=== PATIENT | female | born 1935 | race Two or more races ===

== ENCOUNTER 2017-11-22 07:50 | Outpatient (CLI) | payer OTHER | END 2017-11-22 08:44 | disposition home or self-care (01) | LOC: SONOGRAMA 07:50 | DX: E04.1 Nontoxic single thyroid nodule (principal) ==

== ENCOUNTER 2018-01-05 10:21 | Outpatient (CLI) | payer OTHER | END 2018-01-05 11:13 | disposition home or self-care (01) | LOC: SONOGRAMA 10:21 | DX: N95.0 Postmenopausal bleeding (principal) ==

== ENCOUNTER 2018-03-19 07:57 | Inpatient (IN) | payer OTHER ==
[~2018-03-19] VITALS: Ht 172.7 cm; Wt 76.2 kg
[2018-03-19] MEDS ORDERED: APRESOLINE 10MG10 MG PO (09:43)
[2018-03-19] MEDS ORDERED: TOPROL XL200 MG PO (09:44)
[2018-03-19] MEDS ORDERED: HYZAAR 50-12.51 EACH PO (09:44)
[2018-03-19] MEDS ORDERED: ZESTRIL40 M1 PO (09:44)
[2018-03-19] MEDS ORDERED: LISINOPRIL5 MG PO (09:45)
[2018-03-19] MEDS ORDERED: CARDURA1 MG PO (09:45)
[2018-03-19] MEDS ORDERED: ZOCOR20 MG PO (09:45)
== END 2018-03-24 13:19 | DRG 741 ==
LOC: EDSTATUS 08:15 → ADM 08:15 → OB/GYN 03-21 05:40 → O/R 03-21 05:40 → SURH 03-21 07:00 → OB/GYN 03-21 10:50
PROVIDERS: Obstetrics & Gynecology Gynecologic Oncology
PROC: 0UT70ZZ Resection of Bilateral Fallopian Tubes, Open Approach (ICD-10-PCS; 2018-03-21)
PROC: 0UT20ZZ Resection of Bilateral Ovaries, Open Approach (ICD-10-PCS; 2018-03-21)
PROC: 07BC0ZX Excision of Pelvis Lymphatic, Open Approach, Diagnostic (ICD-10-PCS; 2018-03-21)
PROC: 0UT90ZZ Resection of Uterus, Open Approach (ICD-10-PCS; principal; 2018-03-21 07:00)
DX: C54.1 Malignant neoplasm of endometrium (principal); I11.9 Hypertensive heart disease without heart failure

== ENCOUNTER → 2019-04-02 | Outpatient (CLI) | payer OTHER ==
[~2019-04-02] MED LIST: APRESOLINE 10MG10 MG PO; CARDURA1 MG PO; HYZAAR 50-12.51 EACH PO; LISINOPRIL5 MG PO; TOPROL XL200 MG PO; ZESTRIL40 M1 PO; ZOCOR20 MG PO
== END | disposition home or self-care (01) ==
LOC: NUCLEAR 08:02
DX: C54.1 Malignant neoplasm of endometrium (principal); K83.8 Other specified diseases of biliary tract
CPT/HCPCS: 73522; 73551; 78816; A9552

== ENCOUNTER → 2019-04-10 | Outpatient (CLI) | payer OTHER | END | disposition home or self-care (01) | LOC: MRI 08:28 | DX: C54.1 Malignant neoplasm of endometrium (principal); M25.512 Pain in left shoulder; M12.812 Other specific arthropathies, not elsewhere classified, left shoulder | CPT/HCPCS: 73221 ==

== ENCOUNTER 2019-08-18 07:39 | Outpatient (CLI) | payer OTHER | END 2019-08-18 17:00 | disposition home or self-care (01) | LOC: MRI 07:39 | DX: C54.1 Malignant neoplasm of endometrium (principal); D64.89 Other specified anemias | CPT/HCPCS: 72195; 72196; 74181; 74182 ==

== ENCOUNTER → 2019-08-22 | Outpatient (CLI) | payer OTHER | END | disposition home or self-care (01) | LOC: NUCLEAR 07:00 | DX: I20.8 Other forms of angina pectoris (principal); I50.32 Chronic diastolic (congestive) heart failure | CPT/HCPCS: 78452; 93017; A9500; J0153 ==

== ENCOUNTER 2019-09-19 07:24 | Outpatient (CLI) | payer OTHER | END 2019-09-19 07:26 | disposition home or self-care (01) | LOC: TOM 07:24 | DX: K56.50 Intestinal adhesions [bands], unspecified as to partial versus complete obstruction (principal); K56.609 Unspecified intestinal obstruction, unspecified as to partial versus complete obstruction; K56.690 Other partial intestinal obstruction; K56.600 Partial intestinal obstruction, unspecified as to cause ==

== ENCOUNTER 2020-01-08 07:11 | Outpatient (CLI) | payer OTHER | END 2020-01-08 08:00 | disposition home or self-care (01) | LOC: MRI 07:11 | DX: C64.1 Malignant neoplasm of right kidney, except renal pelvis (principal) | CPT/HCPCS: 71046; 72197; 74183; A9575; 72196; 74182 ==

== ENCOUNTER 2020-02-17 11:45 | Inpatient (IN) | payer OTHER ==
[~2020-02-17] VITALS: Ht 172.7 cm; Wt 72.6 kg
[2020-02-17] MEDS ORDERED: HORIZANT300 MG (11:56)
[2020-02-17] MEDS ORDERED: CHLORTHALIDONE25 MG (11:57)
[2020-02-17] MEDS ORDERED: HYDRALAZINE HC100 MG (11:57)
[2020-02-17] MEDS ORDERED: COZAAR100 MG (11:58)
[2020-02-23] MEDS ORDERED: CLOPIDOGREL BIS75 MG PO (10:48)
[2020-02-23] MEDS ORDERED: LOSARTAN-HCTZ1 EAC2 PO (10:48)
[2020-02-23] MEDS ORDERED: LIPITOR40 MG PO (10:48)
[2020-02-23] MEDS ORDERED: HYDRALAZINE HCL25 MG PO (10:49)
[2020-02-23] MEDS ORDERED: NIFEDIPINE ER30 MG PO (10:49)
[2020-02-23] MEDS ORDERED: HYDROCHLOROTHIA25 MG PO (12:02)
[2020-02-23] MEDS ORDERED: LOSARTAN POTAS100 MG PO (12:02)
== END 2020-02-23 12:29 | disposition home or self-care (01) | DRG 69 ==
LOC: ER 11:45 → MEDJ 19:26
PROVIDERS: ADMIT Internal Medicine
PROC: B030ZZZ Magnetic Resonance Imaging (MRI) of Brain (ICD-10-PCS; principal; 2020-02-17)
PROC: B246ZZZ Ultrasonography of Right and Left Heart (ICD-10-PCS; 2020-02-17)
PROC: BW28ZZZ Computerized Tomography (CT Scan) of Head (ICD-10-PCS; 2020-02-17)
PROC: B345ZZZ Ultrasonography of Bilateral Common Carotid Arteries (ICD-10-PCS; 2020-02-17)
PROC: BB24ZZZ Computerized Tomography (CT Scan) of Bilateral Lungs (ICD-10-PCS; 2020-02-18)
PROC: 4A12X4Z Monitoring of Cardiac Electrical Activity, External Approach (ICD-10-PCS; 2020-02-19)
DX: I67.82 Cerebral ischemia (principal); I50.41 Acute combined systolic (congestive) and diastolic (congestive) heart failure; I31.3 Pericardial effusion (noninflammatory); G45.8 Other transient cerebral ischemic attacks and related syndromes; N17.8 Other acute kidney failure; I11.0 Hypertensive heart disease with heart failure; E87.6 Hypokalemia; E03.8 Other specified hypothyroidism; I25.10 Atherosclerotic heart disease of native coronary artery without angina pectoris; Z79.01 Long term (current) use of anticoagulants
CPT/HCPCS: 70551; 70553

== ENCOUNTER 2020-03-30 10:20 | Inpatient (IN) | payer OTHER ==
[~2020-03-30] VITALS: Ht 172.7 cm; Wt 72.6 kg
[~2020-03-30 10:20] MED LIST changes: +CHLORTHALIDONE25 MG; +CLOPIDOGREL BIS75 MG PO; +COZAAR100 MG; +HORIZANT300 MG; +HYDRALAZINE HC100 MG; +HYDRALAZINE HCL25 MG PO; +HYDROCHLOROTHIA25 MG PO; +LIPITOR40 MG PO; +LOSARTAN POTAS100 MG PO; +LOSARTAN-HCTZ1 EAC2 PO; +NIFEDIPINE ER30 MG PO
== END 2020-04-03 12:35 | disposition home or self-care (01) | DRG 690 ==
LOC: ER 10:20 → SURG 15:18
PROVIDERS: ADMIT Internal Medicine
DX: N39.0 Urinary tract infection, site not specified (principal); R31.0 Gross hematuria; E03.8 Other specified hypothyroidism; E87.6 Hypokalemia; I11.9 Hypertensive heart disease without heart failure; I25.10 Atherosclerotic heart disease of native coronary artery without angina pectoris; Z08 Encounter for follow-up examination after completed treatment for malignant neoplasm; Z85.42 Personal history of malignant neoplasm of other parts of uterus

== ENCOUNTER 2020-08-12 07:23 | Outpatient (CLI) | payer OTHER | END 2020-08-12 17:42 | disposition home or self-care (01) | LOC: MRI 07:23 | PROVIDERS: ATTEND Internal Medicine Hematology & Oncology | DX: C54.1 Malignant neoplasm of endometrium (principal) | CPT/HCPCS: 72197; 74183; A9575; 72196; 74182 ==

== ENCOUNTER → 2020-08-13 | Outpatient (CLI) | payer OTHER | END | disposition home or self-care (01) | LOC: NUCLEAR 09:00 | PROVIDERS: ATTEND Internal Medicine Hematology & Oncology | DX: C54.1 Malignant neoplasm of endometrium (principal) | CPT/HCPCS: 78815; A9552 ==

== ENCOUNTER 2021-03-22 13:44 | Outpatient (CLI) | payer OTHER | END 2021-03-22 14:37 | disposition home or self-care (01) | LOC: SONOGRAMA 13:44 | DX: N18.30 Chronic kidney disease, stage 3 unspecified (principal) ==

== ENCOUNTER → 2021-03-22 | Outpatient (CLI) | payer OTHER | END | disposition home or self-care (01) | LOC: MRI 08-12 08:00 → NUCLEAR 11:11 | PROVIDERS: ATTEND Internal Medicine | DX: M85.80 Other specified disorders of bone density and structure, unspecified site (principal); M81.0 Age-related osteoporosis without current pathological fracture ==

== ENCOUNTER 2021-08-09 07:51 | Outpatient (CLI) | payer OTHER | END 2021-08-09 14:56 | disposition home or self-care (01) | LOC: MRI 07:51 | PROVIDERS: ATTEND Internal Medicine Hematology & Oncology | DX: N94.89 Other specified conditions associated with female genital organs and menstrual cycle (principal); C54.1 Malignant neoplasm of endometrium | CPT/HCPCS: 72196; 74182; A9575; 72197; 74183 ==

== ENCOUNTER 2021-08-09 08:00 | Outpatient (CLI) | payer OTHER | END 2021-08-09 08:30 | disposition home or self-care (01) | LOC: PPH VACUNA 08:00 | PROVIDERS: ATTEND Emergency Medicine Pediatric Emergency Medicine | DX: Z23 Encounter for immunization (principal) ==

== ENCOUNTER 2021-08-31 08:31 | Outpatient (CLI) | payer OTHER | END 2021-08-31 08:35 | disposition home or self-care (01) | LOC: NUCLEAR 08:31 | PROVIDERS: ATTEND Internal Medicine Hematology & Oncology | DX: C54.1 Malignant neoplasm of endometrium (principal) | CPT/HCPCS: 78815; A9552 ==

== ENCOUNTER 2021-11-11 10:29 | Outpatient (CLI) | payer OTHER | END 2021-11-11 11:03 | disposition home or self-care (01) | LOC: SONOGRAMA 10:29 | PROVIDERS: ATTEND Internal Medicine Hematology & Oncology | DX: E04.2 Nontoxic multinodular goiter (principal) ==

== ENCOUNTER 2021-11-21 11:45 | Inpatient (IN) | payer OTHER ==
[~2021-11-21] VITALS: Ht 167.6 cm; Wt 74.8 kg
[2021-11-21] MEDS ORDERED: HYDRALAZINE HCL50 MG PO (12:04)
[2021-11-21] MEDS ORDERED: GABAPENTIN100 M2 PO (12:05)
[2021-11-21] MEDS ORDERED: NIFEDIPINE20 MG (12:06)
[2021-11-22] MEDS ORDERED: ALENDRONATE SOD70 MG (11:12)
[2021-11-22] MEDS ORDERED: ATORVASTATIN CA40 MG (11:12)
[2021-11-22] MEDS ORDERED: HYDROCHLOROTHIA25 MG (11:13)
[2021-11-22] MEDS ORDERED: CLOPIDOGREL BIS75 MG (11:13)
[2021-11-22] MEDS ORDERED: TRAMADOL HCL50 MG (11:13)
== END 2021-11-28 20:16 | disposition home or self-care (01) | DRG 811 ==
LOC: ER 11:45 → MEDJ 20:27
PROVIDERS: ADMIT Internal Medicine; ATTEND Internal Medicine
PROC: 8E0ZXY6 Isolation (ICD-10-PCS; 2021-11-21)
PROC: 30233N1 Transfusion of Nonautologous Red Blood Cells into Peripheral Vein, Percutaneous Approach (ICD-10-PCS; principal; 2021-11-22)
PROC: 4A033R1 Measurement of Arterial Saturation, Peripheral, Percutaneous Approach (ICD-10-PCS; 2021-11-22)
PROC: BW25ZZZ Computerized Tomography (CT Scan) of Chest, Abdomen and Pelvis (ICD-10-PCS; 2021-11-22)
PROC: 4A12X4Z Monitoring of Cardiac Electrical Activity, External Approach (ICD-10-PCS; 2021-11-25)
PROC: B24BZZZ Ultrasonography of Heart with Aorta (ICD-10-PCS; 2021-11-25)
DX: D64.9 Anemia, unspecified (principal); U07.1 COVID-19; N17.8 Other acute kidney failure; I10 Essential (primary) hypertension; E87.6 Hypokalemia; E78.49 Other hyperlipidemia; C54.1 Malignant neoplasm of endometrium; K62.89 Other specified diseases of anus and rectum; Z20.822 Contact with and (suspected) exposure to COVID-19

== ENCOUNTER 2022-11-15 07:23 | Outpatient (CLI) | payer OTHER ==
[~2022-11-15 07:23] MED LIST changes: +ALENDRONATE SOD70 MG; +ATORVASTATIN CA40 MG; +CLOPIDOGREL BIS75 MG; +GABAPENTIN100 M2 PO; +HYDRALAZINE HCL50 MG PO; +HYDROCHLOROTHIA25 MG; +NIFEDIPINE20 MG; +TRAMADOL HCL50 MG
== END 2022-11-15 07:25 | disposition home or self-care (01) ==
LOC: NUCLEAR 07:23
PROVIDERS: ATTEND Internal Medicine Hematology & Oncology
DX: C54.1 Malignant neoplasm of endometrium (principal); Z91.013 Allergy to seafood
CPT/HCPCS: 78816; A9552

== ENCOUNTER 2022-12-04 21:20 | Emergency (ER) | payer OTHER ==
[~2022-12-04] VITALS: Ht 172.7 cm; Wt 65.8 kg
== END 2022-12-05 00:30 | disposition home or self-care (01) ==
LOC: ER 21:20
DX: M54.2 Cervicalgia (principal); Z91.013 Allergy to seafood

== ENCOUNTER 2023-03-21 09:55 | Inpatient (IN) | payer OTHER ==
[~2023-03-21] VITALS: Ht 172.7 cm; Wt 65.3 kg
[2023-03-21] MEDS ORDERED: HORIZANT300 MG (10:12)
[2023-03-21] MEDS ORDERED: CALCIUM 600+D1 EAC1 (10:13)
[2023-03-21] MEDS ORDERED: ABANEU-SL TABL1 EACH (10:13)
[2023-03-21] MEDS ORDERED: DIALYVITE TABL1 EACH (10:14)
[2023-03-21] MEDS ORDERED: HYDROCHLOROTHIA25 MG PO (10:14)
[2023-03-21] MEDS ORDERED: ELIQUIS2.5 MG (10:15)
[2023-03-21] MEDS ORDERED: ALLOPURINOL300 MG PO (10:16)
[2023-03-21] MEDS ORDERED: CLONAZEPAM0.5 M1 (10:16)
[2023-03-21] MEDS ORDERED: HYDRALAZINE HCL50 MG PO (10:16)
== END 2023-03-24 23:40 | disposition home or self-care (01) | DRG 811 ==
LOC: ER 09:55 → MEDJ 19:50
PROVIDERS: ADMIT Internal Medicine; ATTEND Internal Medicine
PROC: BW21ZZZ Computerized Tomography (CT Scan) of Abdomen and Pelvis (ICD-10-PCS; 2023-03-21)
PROC: 4A12X4Z Monitoring of Cardiac Electrical Activity, External Approach (ICD-10-PCS; principal; 2023-03-22)
PROC: 30233N1 Transfusion of Nonautologous Red Blood Cells into Peripheral Vein, Percutaneous Approach (ICD-10-PCS; 2023-03-22)
PROC: B24BZZZ Ultrasonography of Heart with Aorta (ICD-10-PCS; 2023-03-22)
DX: D64.9 Anemia, unspecified (principal); I21.A1 Myocardial infarction type 2; N17.9 Acute kidney failure, unspecified; I13.0 Hypertensive heart and chronic kidney disease with heart failure and stage 1 through stage 4 chronic kidney disease, or unspecified chronic kidney disease; K92.2 Gastrointestinal hemorrhage, unspecified; I48.0 Paroxysmal atrial fibrillation; N18.9 Chronic kidney disease, unspecified; D63.1 Anemia in chronic kidney disease; I50.9 Heart failure, unspecified; Z20.822 Contact with and (suspected) exposure to COVID-19; G62.89 Other specified polyneuropathies; K62.7 Radiation proctitis; C54.1 Malignant neoplasm of endometrium